=== PATIENT | female | born 1955 | race Caucasian/White ===

== ENCOUNTER 2022-05-24 17:35 | Emergency (ER) | payer MEDICARE, BC ==
[~2022-05-24] VITALS: Ht 162.6 cm; Wt 64.9 kg
[~2022-05-24 17:35] MED LIST: LISI2.5T2 PO
[2022-05-24 18:00] VITALS: BP 158/83
== END 2022-05-24 20:10 | disposition home or self-care (01) ==
LOC: ER 17:41
DX: S00.03XA Contusion of scalp, initial encounter (principal); I10 Essential (primary) hypertension; Z79.899 Other long term (current) drug therapy; W18.30XA Fall on same level, unspecified, initial encounter; Y93.01 Activity, walking, marching and hiking; Y92.89 Other specified places as the place of occurrence of the external cause; Y99.8 Other external cause status
CPT/HCPCS: 70450-TC; 72125-TC

== ENCOUNTER 2025-07-05 22:18 | Emergency (ER) | payer MEDICARE, BC ==
[~2025-07-05] VITALS: Ht 162.6 cm; Wt 65.8 kg
[2025-07-05 22:37] VITALS: TEMP 98.7
[2025-07-05 23:54] VITALS: BP 151/85; O2SAT 98
== END 2025-07-05 23:57 | disposition home or self-care (01) ==
LOC: ER 22:21
DX: S80.02XA Contusion of left knee, initial encounter (principal); S40.011A Contusion of right shoulder, initial encounter; I10 Essential (primary) hypertension; W17.89XA Other fall from one level to another, initial encounter; Y93.89 Activity, other specified; Y92.89 Other specified places as the place of occurrence of the external cause; Y99.8 Other external cause status
CPT/HCPCS: 73030-TC; 73564-TC